=== PATIENT | male | born 1990 | race Caucasian/White ===

== ENCOUNTER 2016-07-27 12:51 | Emergency (ER) | payer OTHER ==
[2016-07-27 13:05] VITALS: BP 136/79
--- NOTE | 2016-07-27 13:05 | ER Document Report ---
ED Medical Screen (RME) - General Chief Complaint: Toothache Stated Complaint: TOOTHACHE Mode of Arrival: Ambulatory Information source: Patient Notes: pt presents to the ED with c/o dental pain that started yesterday. Also complains of chronic abdominal pain that hurts him when he eats certain foods. Reports pain for over 6 months. I have greeted and performed a rapid initial assessment of this patient. A comprehensive ED assessment and evaluation of the patient, analysis of test results and completion of the medical decision making process will be conducted by additional ED providers. TRAVEL OUTSIDE OF THE [place] IN LAST 30 DAYS: No - Related Data Allergies/Adverse Reactions: No Known Allergies Allergy (Unverified 07/27/16 13:02) Past Medical History Psychiatric Medical History: Reports: Hx Anxiety - Immunizations Immunizations up to date: Yes Hx Diphtheria, Pertussis, Tetanus Vaccination: Yes - 2012
--- NOTE | 2016-07-27 13:24 | ER Document Report ---
ED Oral Problem - General Chief Complaint: Toothache Stated Complaint: TOOTHACHE Mode of Arrival: Ambulatory Notes: Patient awakened this morning with pain in his lower left tooth that apparently fractured during the night. He says he is unable to get into see a dentist until the , but does have an appointment on today. Has not had any fever. Also says he's been having intermittent abdominal pains for the past 6 months. Has not seen a doctor about that condition. I advised him that that's a chronic pain condition and should be followed up by primary care provider in the community. TRAVEL OUTSIDE OF THE [place] IN LAST 30 DAYS: No - Related Data Allergies/Adverse Reactions: No Known Allergies Allergy (Unverified 07/27/16 13:02) Past Medical History - General Information source: Patient - Social History Smoking Status: Current Every Day Smoker Chew tobacco use (# tins/day): No Frequency of alcohol use: None Drug Abuse: None Family History: Reviewed & Not Pertinent, DM, Malignancy. denies: Arthritis, CAD, Hyperlipidemia, Hypertension, Thyroid Disfunction Patient has suicidal ideation: No Patient has homicidal ideation: No Psychiatric Medical History: Reports: Hx Anxiety Past Surgical History: Reports: Hx Herniorrhaphy - Immunizations Immunizations up to date: Yes Hx Diphtheria, Pertussis, Tetanus Vaccination: Yes - 2012 Review of Systems - Review of Systems Constitutional: denies: Chills, Fever, Malaise EENT: Dental problem. denies: Sinus discharge, Throat pain, Throat swelling Physical Exam - Vital signs Vitals: Temp Pulse Resp BP Pulse Ox 98 F 75 12 136/79 H 100 07/27/16 13:03 07/27/16 13:03 07/27/16 13:03 07/27/16 13:03 07/27/16 13:03 Interpretation: Normal - Notes Notes: PHYSICAL EXAMINATION: GENERAL: Well-appearing, in no acute distress. Voice normal. HEAD: Atraumatic, normocephalic. ENT: oropharynx clear without exudates. Moist mucous membranes. Patient has a fracture of tooth #22, the posterior half appears to be missing. NECK: Normal range of motion, supple. SKIN: Warm, dry, no rashes. Course - Vital Signs Vital signs: Temp Pulse Resp BP Pulse Ox 98 F 75 12 136/79 H 100 07/27/16 13:03 07/27/16 13:03 07/27/16 13:03 07/27/16 13:03 07/27/16 13:03 Discharge - Discharge Clinical Impression: Tooth ache, Chronic abdominal pain Fractured tooth Qualifiers: Encounter type: initial encounter Fracture type: closed Qualified Code(s): S02.5XXA - Fracture of tooth (traumatic), initial encounter for closed fracture Condition: Stable Disposition: HOME, SELF-CARE Additional Instructions: TOOTHACHE and fractured tooth: Your pain is due to dental decay. The tooth must be repaired in order for you to feel better. You will, therefore, be referred to a dentist. We do not have dentists on the staff at [facility]. Severe swelling or drainage around a tooth usually means a dental abscess. This also requires evaluation and treatment by the dentist, but antibiotics may be prescribed while awaiting dental treatment. You should be rechecked immediately if you develop major swelling of the face, increasing pain, a lump in the jaw or gums, headache, difficulty swallowing, or fever. ORAL NARCOTIC MEDICATION: You have been given a prescription for pain control. This medication is a narcotic. It's best taken with food, as nausea can result if taken on an empty stomach. Don't operate machinery or drive within six hours of taking this medication. Do not combine this medicine with alcohol, or with any medication which can cause sedation (such as cold tablets or sleeping pills) unless you get permission from the physician. Narcotics tend to cause constipation. If possible, drink plenty of fluids and eat a diet high in fiber and fruits. PENICILLIN V K: You have been given a prescription for Penicillin VK. Your physician has determined that this is the best antibiotic for your condition. Pen VK can be taken with meals, however more of the antibiotic gets into the bloodstream if it's taken on an empty stomach. Penicillin usually has no side effects. However, allergy to penicillins is common. If you have had an allergic reaction to any drug of the penicillin family, you should never take any other penicillin. Notify your doctor at once if you develop hives, itching, swelling, faintness, or shortness of breath. Your abdominal pain has been present for many months and is therefore chronic pain. We recommend you follow-up with a local healthcare provider to investigate the abdominal pain you've been experiencing for over 6 months. FOLLOW-UP CARE: You have been referred for follow-up care to the dentists listed below. Call the dentists office for an appointment as you were instructed or within the next two days. If you experience worsening or a significant change in your symptoms, notify the physician immediately or return to the Emergency Department at any time for re-evaluation. Keep your appointment to see a dentist on the , as you have scheduled. For future reference, some of the providers listed below are also available to help out with dental care. [facility] [address] [place], [place] mornings, by appointment [facility] [address] [place] [address] Count Includes The [facility] [address] [facility] [address] [facility] ([facility]) [facility] [address] [facility] [email or web address] [facility] [address] [place] [address] Wednesday- 8:00am to 5:00 pm Will see patients from other [facility]. Charges based on income and family size and accepts Medicare, Medicaid, and Insurances Will pull molars [facility] Student Clinics [facility] [id number] Hours of Operation 8:00 am - 4:30 pm weekdays The following dental offices accept Medicaid: [facility] Dr. Childers Dr. Angel Dr. Kumar Dr. Hurtado Rodrigo Lara, Aron, and Marco oral surgery Dr. Lam ([place]) Dr. Gurrola ([place]) [facility] Drs. Ugarte ([place]) Dr. Maloney ([place]) [facility] Dr. Sanabria ([place]) Drs. Brooke and ([place]) Medicaid Care Line Prescriptions: Oxycodone HCl/Acetaminophen [Percocet 5-325 mg Tablet] 1 - 2 tab PO Q4H PRN #20 tablet PRN Reason: Penicillin V Potassium [Penicillin Vk 500 mg Tablet] 500 mg PO TID #20 tablet Forms: Return to Work
== END 2016-07-27 13:32 | disposition home or self-care (01) ==
LOC: ER 12:51
DX: S02.5XXA Fracture of tooth (traumatic), initial encounter for closed fracture (principal); K08.9 Disorder of teeth and supporting structures, unspecified; F17.200 Nicotine dependence, unspecified, uncomplicated; X58.XXXA Exposure to other specified factors, initial encounter
CPT/HCPCS: 99282

== ENCOUNTER 2018-05-06 09:07 | Emergency (ER) | payer SELFPAY ==
[2018-05-06 09:22] VITALS: BP 121/71
[2018-05-06] MEDS ORDERED: ACETAMINOPHEN 325 MG TABLET PO ONE (09:54)
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
--- NOTE | 2018-05-06 10:34 | RADIOLOGY REPORT (SQ) ---
EXAM DESCRIPTION: FOOT RIGHT COMPLETE COMPLETED DATE/TIME: 05/06/2018 10:22 am REASON FOR STUDY: injury last week continued pain to right heel COMPARISON: None. NUMBER OF VIEWS: Three views. TECHNIQUE: AP, lateral and oblique radiographic images acquired of the right foot. LIMITATIONS: None. FINDINGS: MINERALIZATION: Normal. BONES: No acute fracture or dislocation. No worrisome bone lesions. JOINTS: No effusions. SOFT TISSUES: No soft tissue swelling. No foreign body. OTHER: No other significant finding. IMPRESSION: NEGATIVE STUDY OF THE RIGHT FOOT. NO RADIOGRAPHIC EVIDENCE OF ACUTE INJURY. TECHNICAL DOCUMENTATION: JOB ID: [id number] [employer]- All Rights Reserved Reading location - IP/workstation name: [email or web address]
== END 2018-05-06 10:49 | disposition home or self-care (01) ==
LOC: ER 09:07
DX: S90.31XA Contusion of right foot, initial encounter (principal); M79.671 Pain in right foot; Y04.0XXA Assault by unarmed brawl or fight, initial encounter; Z79.899 Other long term (current) drug therapy; F17.210 Nicotine dependence, cigarettes, uncomplicated
CPT/HCPCS: 99283; 99406

== ENCOUNTER 2018-05-15 10:03 | Emergency (ER) | payer SELFPAY ==
--- NOTE | 2018-05-15 10:21 | ER Document Report ---
ED Medical Screen (RME) - General Chief Complaint: Suicidal Ideation Stated Complaint: PSYCH PROBLEM Time Seen by Provider: 05/15/18 10:10 Notes: 28-year-old male to the emergency department for evaluation of suicidal ideation. Patient has substance abuse. Inject heroin. Is homeless. No social support. Living in a van at this time. States that on several occasions he is thought about intentionally overdosing because he is hopeless. Decided to come here for some help. I have greeted and performed a rapid initial assessment of this patient. A comprehensive ED assessment and evaluation of the patient, analysis of test results and completion of the medical decision making process will be conducted by additional ED providers. TRAVEL OUTSIDE OF THE [place] IN LAST 30 DAYS: No - Related Data Allergies/Adverse Reactions: No Known Allergies Allergy (Unverified 07/27/16 13:02) Past Medical History - Social History Frequency of alcohol use: Heavy Drug Abuse: Heroin, Marijuana, Prescription drugs Lives with: Homeless - Medical History Medical History: Negative Renal/ Medical History: Denies: Hx Peritoneal Dialysis Musculoskeltal Medical History: Reports Hx Musculoskeletal Trauma Psychiatric Medical History: Reports: Hx Anxiety, Hx Depression Past Surgical History: Reports: Hx Herniorrhaphy, Hx Myringotomy - Immunizations Immunizations up to date: Yes Hx Diphtheria, Pertussis, Tetanus Vaccination: Yes - 2012 Review of Systems - Review of Systems Notes: Review of systems positive for the following: Suicidal ideation, addiction, depression Physical Exam - Vital signs Vitals: Temp Pulse Resp BP Pulse Ox 97.8 F 129 H 18 106/71 97 05/15/18 10:05/15/18 10:05/15/18 10:05/15/18 10:09 05/15/18 10:09 Interpretation: Tachycardic. No: Febrile - HEENT Head: Normocephalic, Atraumatic Eyes: Normal Pupils: PERRL - Respiratory Respiratory status: No respiratory distress Chest status: Nontender Breath sounds: Normal Chest palpation: Normal - Cardiovascular Rhythm: Tachycardia Heart sounds: Normal auscultation Murmur: No - Psychological Associated symptoms: Normal affect, Depressed Course - Vital Signs Vital signs: Temp Pulse Resp BP Pulse Ox 97.8 F 129 H 18 106/71 97 05/15/18 10:09 05/15/18 10:09 05/15/18 10:05/15/18 10:05/15/18 10:09
--- NOTE | 2018-05-15 10:51 | ER Document Report ---
ED Psych Disorder / Suicide - General Chief Complaint: Suicidal Ideation Stated Complaint: PSYCH PROBLEM Time Seen by Provider: 05/15/18 10:10 Notes: 28-year-old male presents to the emergency department complaining of suicidal thoughts. When asked how he would do any state probably suicide by overdose but really has not settled on a specific plan. The patient started using drugs again. He was staying with family before and was kicked out [facility]. He was stealing her medications from the house. The patient went [facility] [place] [facility] and was staying there but due to his substance abuse issues alcohol and heroin he was kicked out. The patient stated he is homeless and has nowhere to go. He stated that he is having increased thoughts of suicide due to the stressors. States he has never tried before. He is looking for help. Denies any physical complaints. TRAVEL OUTSIDE OF THE [place] IN LAST 30 DAYS: No - Related Data Allergies/Adverse Reactions: No Known Allergies Allergy (Unverified 07/27/16 13:02) Past Medical History - Social History Smoking Status: Current Every Day Smoker Chew tobacco use (# tins/day): No Frequency of alcohol use: Heavy Drug Abuse: Heroin, Marijuana, Prescription drugs Lives with: Homeless Family History: Reviewed & Not Pertinent, DM, Malignancy Patient has suicidal ideation: Yes Patient has homicidal ideation: No - Medical History Medical History: Negative Renal/ Medical History: Denies: Hx Peritoneal Dialysis Musculoskeletal Medical History: Reports Hx Musculoskeletal Trauma Psychiatric Medical History: Reports: Hx Anxiety, Hx Depression Past Surgical History: Reports: Hx Herniorrhaphy, Hx Myringotomy - Immunizations Immunizations up to date: Yes Hx Diphtheria, Pertussis, Tetanus Vaccination: Yes - 2012 Review of Systems - Review of Systems Constitutional: No symptoms reported EENT: No symptoms reported Cardiovascular: No symptoms reported Respiratory: No symptoms reported Gastrointestinal: No symptoms reported Neurological/Psychological: Suicidal ideation. denies: Hallucinations, Headaches -: Yes All other systems reviewed and negative Physical Exam - Vital signs Vitals: Temp Pulse Resp BP Pulse Ox 97.8 F 129 H 18 106/71 97 05/15/18 10:09 05/15/18 10:09 05/15/18 10:09 05/15/18 10:05/15/18 10:09 - Notes Notes: GENERAL_APPEARANCE: well_nourished, alert, cooperative, no_acute_distress, no _obvious_discomfort. VITALS: reviewed, see vital signs table. HEAD: no_swelling\tenderness on the head. EYES: PERRL, EOMI, conjunctiva_clear. NOSE: no_nasal_discharge. MOUTH: (-)decreased moisture. THROAT: no_throat_inflammation, no_airway_obstruction. no_lymphadenopathy NECK: supple, no_neck_tenderness, (-)thyromegaly. BACK: no_back_tenderness. CHEST_WALL: no_chest_tenderness. LUNGS: no_wheezing, no_rales, no_rhonchi, (-)accessory muscle use, good air exchange bilateral. HEART: normal_rate, normal_rhythm, normal_S1, normal_S2, (-)S3, (-)S4, no_murmur, no_rub. ABDOMEN: normal_BS, soft, no_abd_tenderness, (-)guarding, (-)rebound, no_organomegaly, no_abd_masses. EXTREMITIES: good pulses in all_extremities, no_swelling\tenderness in the extremities, no_edema. SKIN: warm, dry, good_color, no_rash. Track josé on the arms from IV drug abuse none appear infected MENTAL_STATUS: speech_clear, oriented_X_3, anxious_affect, responds_appropriately to questions. PSYCH: Patient is openly suicidal. He states his plan will be to overdose but he has no medicines to overdose. States he really has not settled on a specific plan denies homicidal ideation denies visual or auditory hallucinations seems to have reasonable remote memory and judgment Course - Re-evaluation Re-evalutation: 05/15/18 10:50 28-year-old male arrives with suicidal ideation with very loose plan. He really has not settled on a plan when pushed on and he stated he would overdose but he has no meds to overdose on and he then referred that he may use the heroin. The patient is homeless. He has not tried suicide before he states he has been diagnosed and supposed to be on meds but is never followed through or taken any. We will medically evaluate him and if clear we will have psychiatry team see him. 05/15/18 11:24 Patient's laboratory work is back. The liver function tests had some very mild elevations but this is due to the amount of alcohol he is drinking. Otherwise he is medically clear for inpatient psychiatric care as he would require if required. Patient is medically clear. 05/15/18 11:24 We will await psychiatry consultation - Vital Signs Vital signs: Temp Pulse Resp BP Pulse Ox 97.8 F 72 16 106/71 99 05/15/18 10:09 05/15/18 10:51 05/15/18 10:51 05/15/18 10:09 05/15/18 10:51 - Laboratory Result Diagrams: 05/15/18 10:33 05/15/18 10:33 Laboratory results interpreted by me: 05/15/18 05/15/18 05/15/18 10:33 10:33 10:33 RBC 5.66 H Hgb 17.1 H Monocytes % 13.2 H Potassium 5.6 H Glucose 116 H AST 81 H ALT 139 H Urine Protein 100 H Urine Ketones TRACE H Urine Bilirubin SMALL H Urine Urobilinogen 4.0 H Salicylates < 1.0 L Acetaminophen < 10 L Discharge - Discharge Clinical Impression: Suicidal ideation Condition: Good
[2018-05-15 11:00] LABS: ABSOLUTE EOSINOPHILS # (AUTO) 0.2 10^3/uL (0.0-0.6); ABSOLUTE MONOCYTES (AUTO) 0.7 10^3/uL (0.1-1.4); ABSOLUTE NEUT (AUTO) 3.2 10^3/uL (1.7-8.2); BASOPHILS % (AUTO) 0.8 % (0-2); EOSINOPHILS % (AUTO) 3.8 % (0-6); HEMATOCRIT 49.8 % (37.9-51.0); HEMOGLOBIN 17.1 g/dL (13.5-17.0); LYMPHOCYTES % (AUTO) 19.4 % (13-45); MEAN CORPUSCULAR HEMOGLOBIN 30.2 pg (27.0-33.4); MEAN CORPUSCULAR HGB CONC 34.4 g/dL (32.0-36.0); MEAN CORPUSCULAR VOLUME 88 fl (80-97); MONOCYTES % (AUTO) 13.2 % (3-13); PLATELET COUNT 232 10^3/uL (150-450); RED BLOOD COUNT 5.66 10^6/uL (4.35-5.55); RED CELL DISTRIBUTION WIDTH 13.9 % (11.5-14.0); SEGMENTED NEUTROPHILS % (AUTO) 62.8 % (42-78); TOTAL CELLS COUNTED % (AUTO) 100 %; WHITE BLOOD COUNT 5.1 10^3/uL (4.0-10.5)
[2018-05-15 11:11] LABS: APPEARANCE,URINE SLIGHTLY-CLOUDY; BILIRUBIN,URINE SMALL (NEGATIVE); COLOR,URINE AMBER; GLUCOSE, URINE NEGATIVE (NEGATIVE); KETONES,URINE TRACE mg/dL (NEGATIVE); LEUKOCYTE ESTERASE,URINE NEGATIVE (NEGATIVE); NITRITE,URINE NEGATIVE (NEGATIVE); PROTEIN,URINE 100 mg/dL (NEGATIVE); URINE SPECIFIC GRAVITY 1.025
[2018-05-15 11:12] LABS: ALANINE AMINOTRANSFERASE 139 U/L (21-72); ALBUMIN 4.7 g/dL (3.5-5.0); ALKALINE PHOSPHATASE 115 U/L (38-126); ANION GAP 9 (5-19); ASPARTATE AMINO TRANSFERASE 81 U/L (17-59); BILIRUBIN,DIRECT 0.2 mg/dL (0.0-0.4); BILIRUBIN,TOTAL 0.5 mg/dL (0.2-1.3); BLOOD UREA NITROGEN 11 mg/dL (7-20); CALCIUM 10.2 mg/dL (8.4-10.2); CARBON DIOXIDE 30 mmol/L (22-30); CHLORIDE 100 mmol/L (98-107); GLUCOSE 116 mg/dL (75-110); POTASSIUM 5.6 mmol/L (3.6-5.0); TOTAL PROTEIN 7.3 g/dL (6.3-8.2)
[2018-05-15 11:17] LABS: ACETAMINOPHEN < 10 ug/mL (10-30); ALCOHOL < 10 mg/dL (NONE DETECTED); SALICYLATE < 1.0 mg/dL (2.0-20.0)
[2018-05-15 11:20] LABS: URINE AMPHETAMINES SCREEN NEGATIVE; URINE BARBITURATES SCREEN NEGATIVE; URINE BENZODIAZEPINES SCREEN NEGATIVE; URINE COCAINE SCREEN NEGATIVE; URINE MARIJUANA (THC) SCREEN UNCONFIRMED POSITIVE; URINE METHADONE SCREEN NEGATIVE; URINE PHENCYCLIDINE SCREEN NEGATIVE
[2018-05-15 13:35] VITALS: BP 115/74
--- NOTE | 2018-05-15 16:14 | PSYCHOLOGICAL NOTE ---
Psych Note - Psych Note Date seen by psych provider: 05/15/18 Time seen by psych provider: 12:00 Psych Note: Reason for consult: SI, S/A Patient is a 28 yo male presenting to the ED voluntarily with complaints of SI for last 2 weeks and admitted hx of heroin addiction. Of note, Patient was seen in the ED 2 weeks ago for a minor medical concern and denied/did not seek help for SI at that time. He relays that he has a hx of depression and anxiety while using drugs and that this resolved while he was in [facility] recovery for one year. This was a court mandated recovery as pat was convicted of financial fraud and theft. He left [facility] early in 09/2017 violating his parole and relapsed in 11/2017. He has a court date on 06/14/17. Since then, pt was living with a friend and was recently kicked out because he stole medication from the friend's mother. He is no longer allowed at the custodial because he was testing positive for NAVIN's. He is currently living in a friend's van. Patient denies prior suicide attempts, NSSI, has 4x prior S/A rehab, and toxicology is positive for opiates and THC. Patient is alert and oriented x4. Mood is agitated "because of withdrawal with anxious affect aeb patient was shaking and twitching due to withdrawal but was cooperative. Patient endorsed passive SI by OD relaying that SI is specific to drug use. Patient denied HI, and AV/H, does not appear to be responding to internal stimuli and no delusions were noted. Thought processes were linear, organized and rational. Eye contact was well maintained and conversational speech was WNL for rate, tone, and prosody. Intellectual abilities were estimated in the average range. Attention/concentration was WNL while, insight, judgment, and impulse control were fair. Diagnosis: 304.00 (F11.20) Opioid Use Disorder, Severe, by hx Recommendation is to discharge to [facility] for follow up with locating bed availability for detox. Patient verbalized agreement with this plan/gave his contact number for [facility] to reach him/and agreed to wait in the lobby for their arrival. Patient is a 28 yo male presenting to the ED voluntarily for concerns of SI and admitted hx of heroin addiction. He relapsed 11/2017 after one year court mandated rehab through [facility], is now homeless, and is seeking detox and recovery assistance. Patient endorses passive SI by OD aeb "I don't want to act on it/just afraid of getting worse on drugs", patient is hungry and asking for food, and is goal-oriented/future-focused on detox and recovery from heroin addiction. Medication recommendations as per psychiatric provider, Dr. Miranda are as follows: No medication recommendations at this time.
--- NOTE | 2018-05-15 23:42 | EKG REPORT ---
SEVERITY:- NORMAL ECG - SINUS RHYTHM ST ELEV, PROBABLE NORMAL EARLY REPOL PATTERN : Confirmed by: Ankit Meyers 15-May-2018 23:41:06
== END 2018-05-15 13:59 | disposition home or self-care (01) ==
LOC: ER 10:03
DX: R45.851 Suicidal ideations (principal); F11.20 Opioid dependence, uncomplicated; F17.200 Nicotine dependence, unspecified, uncomplicated; Z59.0 Homelessness
CPT/HCPCS: 36415; 80053; 80307; 81001; 85025; 93005; 93010; 99285

== ENCOUNTER 2019-02-10 18:42 | Emergency (ER) | payer SELFPAY ==
[2019-02-10 19:12] VITALS: BP 123/71
[2019-02-10] MEDS ORDERED: NORMAL SALINE 1000 ML 1,000 ML IV ONE (19:49)
[2019-02-10] MEDS ORDERED: DICYCLOMINE HCL 20 MG TABLET PO ONE (19:49)
--- NOTE | 2019-02-10 19:52 | ER Document Report ---
ED Medical Screen (RME) - General Chief Complaint: Abdominal Pain Stated Complaint: ABDOMINAL PAIN Time Seen by Provider: 02/10/19 19:45 Notes: Patient is a 29-year-old male presents emergency department with a chief complaint of abdominal pain. He states that he has had his abdominal pain on and off for the past few months. Patient states that it comes and goes. Patient states that he has had diarrhea. Mom has Crohn's disease. He was tested for Crohn's and it was negative. Patient states that he tried kratom to help with his pain and stopped about a week ago. He continues to have diarrhea. Denies any recent vomiting. Exam: Soft mildly tender abdomen. I have greeted and performed a rapid initial assessment of this patient. A comprehensive ED assessment and evaluation of the patient, analysis of test results and completion of medical decision making process will be conducted by an additional ED providers. TRAVEL OUTSIDE OF THE [place] IN LAST 30 DAYS: No - Related Data Allergies/Adverse Reactions: No Known Allergies Allergy (Unverified 02/10/19 19:39) Past Medical History Renal/ Medical History: Denies: Hx Peritoneal Dialysis Musculoskeltal Medical History: Reports Hx Musculoskeletal Trauma Psychiatric Medical History: Reports: Hx Anxiety, Hx Depression Past Surgical History: Reports: Hx Herniorrhaphy, Hx Myringotomy - Immunizations Immunizations up to date: Yes Hx Diphtheria, Pertussis, Tetanus Vaccination: Yes - 2012 Physical Exam - Vital signs Vitals: Temp Pulse Resp BP Pulse Ox 98.4 F 68 20 123/71 99 02/10/19 19:11 02/10/19 19:11 02/10/19 19:11 02/10/19 19:11 02/10/19 19:11 Course - Vital Signs Vital signs: Temp Pulse Resp BP Pulse Ox 98.4 F 68 20 123/71 99 02/10/19 19:11 02/10/19 19:11 02/10/19 19:11 02/10/19 19:11 02/10/19 19:11
[2019-02-10 20:22] LABS: ABSOLUTE BASOPHILS # (AUTO) 0.1 10^3/uL (0.0-0.2); ABSOLUTE EOSINOPHILS # (AUTO) 0.2 10^3/uL (0.0-0.6); ABSOLUTE LYMPHOCYTES (AUTO) 2.7 10^3/uL (0.5-4.7); ABSOLUTE MONOCYTES (AUTO) 0.7 10^3/uL (0.1-1.4); ABSOLUTE NEUT (AUTO) 4.3 10^3/uL (1.7-8.2); BASOPHILS % (AUTO) 0.6 % (0-2); EOSINOPHILS % (AUTO) 2.2 % (0-6); HEMATOCRIT 45.1 % (37.9-51.0); HEMOGLOBIN 15.4 g/dL (13.5-17.0); LYMPHOCYTES % (AUTO) 33.8 % (13-45); MEAN CORPUSCULAR HEMOGLOBIN 30.4 pg (27.0-33.4); MEAN CORPUSCULAR HGB CONC 34.2 g/dL (32.0-36.0); MEAN CORPUSCULAR VOLUME 89 fl (80-97); MONOCYTES % (AUTO) 8.8 % (3-13); PLATELET COUNT 249 10^3/uL (150-450); RED BLOOD COUNT 5.08 10^6/uL (4.35-5.55); SEGMENTED NEUTROPHILS % (AUTO) 54.6 % (42-78); TOTAL CELLS COUNTED % (AUTO) 100 %; WHITE BLOOD COUNT 7.9 10^3/uL (4.0-10.5)
[2019-02-10 20:47] LABS: ALBUMIN 4.6 g/dL (3.5-5.0); ALKALINE PHOSPHATASE 80 U/L (38-126); ANION GAP 10 (5-19); ASPARTATE AMINO TRANSFERASE 21 U/L (17-59); BILIRUBIN,DIRECT 0.1 mg/dL (0.0-0.4); BILIRUBIN,TOTAL 0.3 mg/dL (0.2-1.3); BLOOD UREA NITROGEN 14 mg/dL (7-20); CALCIUM 9.6 mg/dL (8.4-10.2); CARBON DIOXIDE 25 mmol/L (22-30); CHLORIDE 105 mmol/L (98-107); GLUCOSE 75 mg/dL (75-110); POTASSIUM 4.3 mmol/L (3.6-5.0); TOTAL PROTEIN 7.3 g/dL (6.3-8.2)
--- NOTE | 2019-02-10 23:28 | ER Document Report ---
ED General - General Chief Complaint: Abdominal Pain Stated Complaint: ABDOMINAL PAIN Time Seen by Provider: 02/10/19 19:45 TRAVEL OUTSIDE OF THE [place] IN LAST 30 DAYS: No - HPI Notes: This is a 29-year-old gentleman who presents today with a complaint of abdominal pain intermittently for the past several months. He describes epigastric pain but also has had some left lower quadrant discomfort. He has had some diarrhea and nausea also. Patient states that he was recently tested for Crohn's disease about a year ago. States biopsies and all other the studies were negative. He describes his symptoms as moderate. There are no obvious aggravating or relieving factors. Patient states he feels much better now. Pain was apparently was at work today. - Related Data Allergies/Adverse Reactions: No Known Allergies Allergy (Unverified 02/10/19 19:39) Past Medical History - Social History Smoking Status: Unknown if Ever Smoked Family History: Reviewed & Not Pertinent, DM, Malignancy Patient has suicidal ideation: No Patient has homicidal ideation: No Renal/ Medical History: Denies: Hx Peritoneal Dialysis Musculoskeletal Medical History: Reports Hx Musculoskeletal Trauma Psychiatric Medical History: Reports: Hx Anxiety, Hx Depression Past Surgical History: Reports: Hx Herniorrhaphy, Hx Myringotomy - Immunizations Immunizations up to date: Yes Hx Diphtheria, Pertussis, Tetanus Vaccination: Yes - 2012 Review of Systems - Review of Systems Cardiovascular: denies: Chest pain Gastrointestinal: Abdominal pain, Diarrhea, Nausea. denies: Vomiting, Constipation Musculoskeletal: denies: Back pain -: Yes All other systems reviewed and negative Physical Exam - Vital signs Vitals: Temp Pulse Resp BP Pulse Ox 98.4 F 68 20 123/71 99 02/10/19 19:11 02/10/19 19:11 02/10/19 19:11 02/10/19 19:11 02/10/19 19:11 - General General appearance: Appears well, Alert - Respiratory Respiratory status: No respiratory distress Chest status: Nontender Breath sounds: Normal Chest palpation: Normal - Cardiovascular Rhythm: Regular Heart sounds: Normal auscultation Murmur: No - Abdominal Inspection: Normal Distension: No distension Bowel sounds: Normal Tenderness: Tender - There is very mild epigastric tenderness. No guarding or rebound. Organomegaly: No organomegaly - Extremities General upper extremity: Normal inspection, Nontender, Normal color, Normal ROM, Normal temperature General lower extremity: Normal inspection, Nontender, Normal color, Normal ROM, Normal temperature, Normal weight bearing. No: Ghazala's sign - Neurological Neuro grossly intact: Yes Cognition: Normal Orientation: AAOx4 [place] Coma Scale Eye Opening: Spontaneous [place] Coma Scale Verbal: Oriented [place] Coma Scale Motor: Obeys Commands [place] Coma Scale Total: 15 Speech: Normal Motor strength normal: LUE, RUE, LLE, RLE Sensory: Normal - Psychological Associated symptoms: Normal affect, Normal mood Course - Re-evaluation Re-evalutation: 02/10/19 23:30 Differential diagnosis includes gastritis versus nonspecific abdominal pain versus IBS versus pancreatitis. 02/10/19 23:48 Patient reevaluated. Patient is doing well. He has no pain at this time. Labs reviewed and discussed. We will put him on Bentyl. He is stable for discharge. Discharge and follow-up discussed. - Vital Signs Vital signs: Temp Pulse Resp BP Pulse Ox 98.4 F 68 20 123/71 99 02/10/19 19:11 02/10/19 19:11 02/10/19 19:11 02/10/19 19:11 02/10/19 19:11 - Laboratory Result Diagrams: 02/10/19 20:04 02/10/19 20:04 Discharge - Discharge Clinical Impression: Abdominal pain Qualifiers: Abdominal location: unspecified location Qualified Code(s): R10.9 - Unspecified abdominal pain Condition: Good Disposition: HOME, SELF-CARE Instructions: Abdominal Pain ([facility]), Antispasmodics ([facility]) Additional Instructions: Follow-up with your doctor. Prescriptions: Dicyclomine HCl [Bentyl 20 mg Tablet] 20 mg PO QID PRN #20 tablet PRN Reason: Abdominal Cramping Ondansetron [Zofran Odt 4 mg Tablet] 1 tab PO Q4H PRN #15 tab.rapdis PRN Reason: For Nausea/Vomiting
== END 2019-02-10 23:54 | disposition home or self-care (01) ==
LOC: ER 18:42
DX: R10.32 Left lower quadrant pain (principal); R10.13 Epigastric pain; R19.7 Diarrhea, unspecified; R11.0 Nausea
CPT/HCPCS: 36415; 83690; 85025; 80053; J3490; J7030

== ENCOUNTER 2019-08-01 21:03 | Emergency (ER) | payer SELFPAY ==
--- NOTE | 2019-08-01 21:25 | ER Document Report ---
ED Medical Screen (RME) - General Chief Complaint: Psych Problem Stated Complaint: IVC Time Seen by Provider: 08/01/19 21:17 Mode of Arrival: Ambulatory Information source: Patient, Law [employer] Notes: 29-year-old male with history of drug abuse presents with [facility] department on IVC papers for report that patient tried to overdose on fentanyl twice today in an attempt to harm himself. Also tried to suffocate himself. Patient contacted mobile crisis when he was at home. Patient reports suicidal ideations due to financial difficulties. Patient very tearful. I have greeted and performed a rapid initial assessment of this patient. A comprehensive ED assessment and evaluation of the patient, analysis of test results and completion of the medical decision making process will be conducted by additional ED providers. TRAVEL OUTSIDE OF THE [place] IN LAST 30 DAYS: No - Related Data Allergies/Adverse Reactions: No Known Allergies Allergy (Unverified 02/10/19 19:39) Past Medical History Renal/ Medical History: Denies: Hx Peritoneal Dialysis Musculoskeltal Medical History: Reports Hx Musculoskeletal Trauma Psychiatric Medical History: Reports: Hx Anxiety, Hx Depression Past Surgical History: Reports: Hx Herniorrhaphy, Hx Myringotomy - Immunizations Immunizations up to date: Yes Hx Diphtheria, Pertussis, Tetanus Vaccination: Yes - 2012 Physical Exam - Vital signs Vitals: Temp Pulse Resp BP Pulse Ox 98.1 F 104 H 18 142/95 H 100 08/01/19 21:09 08/01/19 21:09 08/01/19 21:09 08/01/19 21:09 08/01/19 21:09 Course - Vital Signs Vital signs: Temp Pulse Resp BP Pulse Ox 98.1 F 104 H 18 142/95 H 100 08/01/19 21:09 08/01/19 21:09 08/01/19 21:09 08/01/19 21:09 08/01/19 21:09
[2019-08-01 21:53] LABS: ABSOLUTE EOSINOPHILS # (AUTO) 0.1 10^3/uL (0.0-0.6); ABSOLUTE MONOCYTES (AUTO) 0.9 10^3/uL (0.1-1.4); ABSOLUTE NEUT (AUTO) 5.1 10^3/uL (1.7-8.2); HEMOGLOBIN 14.6 g/dL (13.5-17.0); MEAN CORPUSCULAR HEMOGLOBIN 30.1 pg (27.0-33.4); TOTAL CELLS COUNTED % (AUTO) 100 %; WHITE BLOOD COUNT 8.2 10^3/uL (4.0-10.5)
[2019-08-01 21:56] LABS: APPEARANCE,URINE SLIGHTLY-CLOUDY; BASOPHILS % (AUTO) 0.4 % (0-2); BILIRUBIN,URINE NEGATIVE (NEGATIVE); COLOR,URINE AMBER; EOSINOPHILS % (AUTO) 1.7 % (0-6); GLUCOSE, URINE NEGATIVE (NEGATIVE); HEMATOCRIT 41.7 % (37.9-51.0); KETONES,URINE 20 mg/dL (NEGATIVE); LEUKOCYTE ESTERASE,URINE NEGATIVE (NEGATIVE); LYMPHOCYTES % (AUTO) 24.4 % (13-45); MEAN CORPUSCULAR VOLUME 86 fl (80-97); MONOCYTES % (AUTO) 10.9 % (3-13); NITRITE,URINE NEGATIVE (NEGATIVE); PLATELET COUNT 210 10^3/uL (150-450); PROTEIN,URINE 30 mg/dL (NEGATIVE); RED BLOOD COUNT 4.85 10^6/uL (4.35-5.55); SEGMENTED NEUTROPHILS % (AUTO) 62.6 % (42-78)
[2019-08-01 22:06] LABS: ALBUMIN 4.7 g/dL (3.5-5.0); ALKALINE PHOSPHATASE 94 U/L (38-126); ANION GAP 11 (5-19); ASPARTATE AMINO TRANSFERASE 23 U/L (17-59); BILIRUBIN,DIRECT 0.2 mg/dL (0.0-0.4); BILIRUBIN,TOTAL 0.5 mg/dL (0.2-1.3); BLOOD UREA NITROGEN 14 mg/dL (7-20); CALCIUM 9.5 mg/dL (8.4-10.2); CARBON DIOXIDE 30 mmol/L (22-30); CHLORIDE 97 mmol/L (98-107); GLUCOSE 104 mg/dL (75-110); POTASSIUM 4.2 mmol/L (3.6-5.0)
[2019-08-01 22:10] LABS: ACETAMINOPHEN < 10 ug/mL (10-30); ALCOHOL < 10 mg/dL (NONE DETECTED); SALICYLATE < 1.0 mg/dL (2.0-20.0)
[2019-08-01 22:15] LABS: URINE BARBITURATES SCREEN NEGATIVE; URINE BENZODIAZEPINES SCREEN NEGATIVE; URINE COCAINE SCREEN NEGATIVE; URINE MARIJUANA (THC) SCREEN NEGATIVE; URINE METHADONE SCREEN NEGATIVE; URINE PHENCYCLIDINE SCREEN NEGATIVE
--- NOTE | 2019-08-01 23:04 | ER Document Report ---
ED General - General Chief Complaint: Depression Stated Complaint: IVC Time Seen by Provider: 08/01/19 21:17 Mode of Arrival: Ambulatory TRAVEL OUTSIDE OF THE [place] IN LAST 30 DAYS: No - HPI Notes: Patient is a 29-year-old male with a history of drug abuse including heroin, meth, fentanyl presents by mobile crisis on IVC papers for suicidal ideation and attempt this morning. Patient states that he last injected meth last night, heroin this morning with fentanyl. Patient states that his mental state was not to overdose at that time, but "if it happened" he was okay with it. Patient states that he was somewhat angry after injecting fentanyl and decided to try to strangle himself with his belt. Patient states that after he took the fentanyl everything became a blur, but something prompted him to make a phone call to his fiance and to mobile crisis. Patient states that he concerned that he was and could have succeeded in taking his own life. Patient states that he has been having financial issues which has been stressing him out. On a side note, patient does have a little pain to his lateral elbow area without precipitating event or injury. Patient does not injected this area. He has not noticed any redness or bruising. This is been ongoing for "a while" and has been relatively constant is worse with movement. Denies any headache, fever, head injury, neck pain, changes in vision/speech/hearing, URI, sore throat, chest pain, palpitations, syncope, cough, shortness of breath, wheeze, dyspnea, abdominal pain, nausea/vomiting/diarrhea, urinary retention, dysuria, hematuria, loss of control of bowel or bladder, numbness/tingling, saddle anesthesia, muscle paralysis/weakness, or rash. - Related Data Allergies/Adverse Reactions: No Known Allergies Allergy (Unverified 02/10/19 19:39) Past Medical History - General Information source: Patient, Law Enforcement - Social History Smoking Status: Never Smoker Drug Abuse: Prescription drugs Family History: Reviewed & Not Pertinent, DM, Malignancy Patient has suicidal ideation: Yes Patient has homicidal ideation: No Renal/ Medical History: Denies: Hx Peritoneal Dialysis Musculoskeletal Medical History: Reports Hx Musculoskeletal Trauma Psychiatric Medical History: Reports: Hx Anxiety, Hx Depression Past Surgical History: Reports: Hx Herniorrhaphy, Hx Myringotomy - Immunizations Immunizations up to date: Yes Hx Diphtheria, Pertussis, Tetanus Vaccination: Yes - 2012 Review of Systems - Review of Systems -: Yes All other systems reviewed and negative Physical Exam - Vital signs Vitals: Temp Pulse Resp BP Pulse Ox 98.1 F 104 H 18 142/95 H 100 08/01/19 21:09 08/01/19 21:09 08/01/19 21:09 08/01/19 21:09 08/01/19 21:09 - Notes Notes: PHYSICAL EXAMINATION: GENERAL: Well-appearing, well-nourished and in no acute distress. A&Ox4. Answers questions appropriately. HEAD: Atraumatic, normocephalic. EYES: Pupils equal round and reactive to light, extraocular movements intact, s clera anicteric, conjunctiva are normal. ENT: Nares patent and without discharge. oropharynx clear without exudates. No tonsilar hypertrophy or erythema. Moist mucous membranes. NECK: Normal range of motion, supple without lymphadenopathy LUNGS: Breath sounds clear to auscultation bilaterally and equal. No wheezes rales or rhonchi. HEART: Regular rate and rhythm without murmurs, rubs, gallops. ABDOMEN: Soft, nontender, nondistended abdomen. No guarding, no rebound. Normal bowel sounds present. No CVA tenderness bilaterally. Musculoskeletal: FROM to passive/active. Strength 5+/5. there is tenderness to the epicondyle tendons that is reproduced with resisted extension. No erythema, ecchymosis, induration, or abscess. Extremities: No cyanosis, clubbing, or edema b/l. Peripheral pulses 2+. Capillary refill less than 3 seconds. NEUROLOGICAL: Cranial nerves grossly intact. Normal speech, normal gait. Normal sensory, motor exams PSYCH: emotional, tearful, remorseful SKIN: Warm, Dry, normal turgor, no rashes or lesions noted. Course - Re-evaluation Re-evalutation: 08/01/19 23:05 Patient is an afebrile, well-hydrated, 29-year-old male who presents for she was ideation with attempt this morning. Patient is on IVC papers. Vitals are except without significant tachycardia, tachypnea, or hypoxia. PE is otherwise unremarkable. Patient is nontoxic-appearing and is tolerating p.o. without difficulty. Patient does show remorse and a desire not to end his life at this time. I will place a clonidine patch today and give him some Motrin. I do suspect that his elbow pain is associated with lateral epicondylitis. He does not inject into this area and there has not been any trauma or other indication for an x-ray at this time. Patient is otherwise medically cleared for evaluation by our mental health team in the morning. - Vital Signs Vital signs: Temp Pulse Resp BP Pulse Ox 98.1 F 104 H 18 142/95 H 100 08/01/19 21:09 08/01/19 21:09 08/01/19 21:09 08/01/19 21:09 08/01/19 21:09 - Laboratory Result Diagrams: 08/01/19 21:32 08/01/19 21:32 Laboratory results interpreted by me: 08/01/19 08/01/19 21:32 21:32 Chloride 97 L Urine Protein 30 H Urine Ketones 20 H Urine Urobilinogen 2.0 H Salicylates < 1.0 L Acetaminophen < 10 L Discharge - Discharge Clinical Impression: Suicidal ideation, Suicide attempt Condition: Stable Disposition: PSYCH HOSP/UNIT
[2019-08-01] MEDS ORDERED: IBUPROFEN 800 MG TABLET PO ONE (23:08)
[2019-08-01] MEDS ORDERED: CLONIDINE 0.1 MG/24 HR PATCH.TDWK TD ONE (23:08)
--- NOTE | 2019-08-02 11:14 | EKG REPORT ---
SEVERITY:- BORDERLINE ECG - SINUS RHYTHM PROBABLE LEFT ATRIAL ABNORMALITY BORDERLINE PROLONGED QT INTERVAL : Confirmed by: Treva Landeros MD 02-Aug-2019 11:13:29
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
[2019-08-02] MEDS ORDERED: ACETAMINOPHEN 325 MG TABLET PO ONE (12:54)
--- NOTE | 2019-08-02 12:55 | ER Document Report ---
Doctor's Note Notes: 08/02/19 12:54 PHYSICAL EXAMINATION: GENERAL: Appears well, healthy, well-nourished, no acute distress. LUNGS: Equal breath sounds bilaterally and clear to auscultation. No wheezes rales or rhonchi. CARDIOVASCULAR: S1-S2, regular rate, regular rhythm. Radial pulses 2+, normal. ABDOMEN: Normoactive bowel sounds. Soft, nontender, no guarding, no rebound tenderness, and no masses palpated. PSYCH: Normal mood, normal affect. Denies any suicidal or homicidal ideation. Patient states that his stomach hurts a little bit and states, "I think it is from the withdrawls." Will give him Tylenol. Law enforcement is at bedside to transport the patient to [facility] health facility. Patient is stable for transport.
[2019-08-02 13:13] VITALS: BP 117/79
== END 2019-08-02 13:16 ==
LOC: ER 21:03
DX: R45.851 Suicidal ideations (principal); T40.4X2A Poisoning by other synthetic narcotics, intentional self-harm, initial encounter; T40.1X2A Poisoning by heroin, intentional self-harm, initial encounter; T43.622A Poisoning by amphetamines, intentional self-harm, initial encounter; X58.XXXA Exposure to other specified factors, initial encounter
CPT/HCPCS: 93005; 99285; 36415; 80307 ×4; 85025; 80053; 81001; 93010; J3490

== ENCOUNTER 2019-12-10 11:13 | Emergency (ER) | payer SELFPAY ==
[2019-12-10 11:50] LABS: ABSOLUTE LYMPHOCYTES (AUTO) 1.3 10^3/uL (0.5-4.7); ABSOLUTE NEUT (AUTO) 9.3 10^3/uL (1.7-8.2); BASOPHILS % (AUTO) 0.3 % (0-2); EOSINOPHILS % (AUTO) 0.3 % (0-6); HEMATOCRIT 42.3 % (37.9-51.0); HEMOGLOBIN 14.4 g/dL (13.5-17.0); LYMPHOCYTES % (AUTO) 11.2 % (13-45); MEAN CORPUSCULAR HEMOGLOBIN 28.9 pg (27.0-33.4); MEAN CORPUSCULAR VOLUME 85 fl (80-97); MONOCYTES % (AUTO) 8.4 % (3-13); PLATELET COUNT 239 10^3/uL (150-450); RED BLOOD COUNT 4.97 10^6/uL (4.35-5.55); RED CELL DISTRIBUTION WIDTH 14.1 % (11.5-14.0); SEGMENTED NEUTROPHILS % (AUTO) 79.8 % (42-78); TOTAL CELLS COUNTED % (AUTO) 100 %; WHITE BLOOD COUNT 11.7 10^3/uL (4.0-10.5)
--- NOTE | 2019-12-10 12:03 | ER Document Report ---
ED General - General Chief Complaint: Possible Overdose Stated Complaint: VISION PROBLEMS Notes: Patient is a 29-year-old white male with a history of heroin abuse who presents to the emergency department the chief complaint of potential overdose. Patient states that he just got out of longterm after 5 days. Was withdrawing from his usual heroin usage. States he typically uses 1 g of heroin per day. He reports he could not resist the urge with withdrawal, called someone who brought him what he believes to be was heroin. He states he went into the bathroom and in jected. He is unsure who found him but states he woke up with EMS. EMS reports he was unresponsive on arrival but was not pulseless. They gave him 1 round of Narcan and the patient became quickly alert and oriented. He has remained that way since his arrival here to the emergency department. The patient is very tearful stating that he is tried several times to stop from using heroin but has great difficulties. He has tried Subutex in the past but states that he can still get high using that and is requesting help with getting connected with Suboxone treatment center. Patient denies any complaints at this time. No headache, visual disturbances, chest pain, shortness of breath, abdominal pain, nausea vomiting diarrhea or any muscle aches or pains. TRAVEL OUTSIDE OF THE [place] IN LAST 30 DAYS: No - Related Data Allergies/Adverse Reactions: No Known Allergies Allergy (Verified 12/10/19 11:27) Past Medical History - Social History Smoking Status: Former Smoker Frequency of alcohol use: Occasional Drug Abuse: Heroin, Methamphetamine Family History: Reviewed & Not Pertinent, DM, Malignancy Patient has homicidal ideation: No Renal/ Medical History: Denies: Hx Peritoneal Dialysis Musculoskeletal Medical History: Reports Hx Musculoskeletal Trauma Psychiatric Medical History: Reports: Hx Anxiety, Hx Depression Past Surgical History: Reports: Hx Herniorrhaphy, Hx Myringotomy - Immunizations Immunizations up to date: Yes Hx Diphtheria, Pertussis, Tetanus Vaccination: Yes - 2012 Review of Systems - Review of Systems Constitutional: denies: Fever EENT: denies: Throat pain Cardiovascular: denies: Chest pain Respiratory: denies: Short of breath Gastrointestinal: denies: Abdominal pain Genitourinary: denies: Pain Male Genitourinary: denies: Erectile dysfunction Musculoskeletal: denies: Back pain Skin: denies: Change in color Hematologic/Lymphatic: denies: Easy bruising Neurological/Psychological: Lost consciousness Physical Exam - Vital signs Vitals: Temp Pulse Resp BP Pulse Ox 97.6 F 117 H 20 118/81 100 12/10/19 11:22 12/10/19 11:22 12/10/19 11:22 12/10/19 11:22 12/10/19 11:22 - General General appearance: Appears well, Alert In distress: None - HEENT Head: Normocephalic, Atraumatic Eyes: Normal Conjunctiva: Normal Eyelashes: Normal Pupils: PERRL Ears: Normal Nasal: Normal Mouth/Lips: Normal Mucous membranes: Moist Pharynx: Normal Neck: Normal, Supple - Respiratory Respiratory status: No respiratory distress Chest status: Nontender Breath sounds: Normal Chest palpation: Normal - Cardiovascular Rhythm: Regular Heart sounds: Normal auscultation - Abdominal Inspection: Normal Distension: No distension Bowel sounds: Normal Tenderness: Nontender Organomegaly: No organomegaly - Neurological Neuro grossly intact: Yes Cognition: Normal Orientation: AAOx4 - Psychological Associated symptoms: Normal affect, Normal mood - Skin Skin Color: Other - Recent injection site noted left AC fossa Course - Re-evaluation Re-evalutation: 12/10/19 12:02 Patient has recently been connected with the [facility] where it appears a off her methadone and Subutex treatments. Patient states he cannot take Subutex because he will continue to get high. States he was on Suboxone in the past and it worked very well for him but he fell out of the program. He is very regretful. States he did not take this medicine on purpose doing with any intent to harm himself. He denies suicidal or homicidal ideations. No delusions or hallucinations. Patient will be medically cleared and he will be given resources for Suboxone treatments. 12/10/19 13:11 EK:52 AM. Sinus tachycardia at 118 bpm. Normal intervals otherwise. No STEMI. No significant change from prior EKG dated 08/01/2019. Interpreted by ED attending. 12/10/19 13:30 Patient is medically cleared. Negative for any acute process on work-up. Urine drug screen positive for benzos from previous Librium administration in longterm as well as methamphetamines. Patient is stable for discharge. We discussed treatment program options. He states he would like to be discharged so he can go to [place] for detox and then connected with potential Suboxone programs that were relayed to him. He is agreeable to this plan. He is stable for discharge to [place]. Counseled him regarding importance of reporting over there and advised to return here or any ER immediately with any new, persistent or worsening symptoms. He verbalized understood and agreed. - Vital Signs Vital signs: Temp Pulse Resp BP Pulse Ox 97.8 F 92 18 120/80 100 12/10/19 13:00 12/10/19 13:00 12/10/19 13:00 12/10/19 13:00 12/10/19 13:00 - Laboratory Result Diagrams: 12/10/19 11:20 12/10/19 11:20 Laboratory results interpreted by me: 12/10/19 12/10/19 12/10/19 11:20 11:20 12:01 WBC 11.7 H RDW 14.1 H Lymph % (Auto) 11.2 L Absolute Neuts (auto) 9.3 H Seg Neutrophils % 79.8 H Glucose 179 H Urine Protein >=500 H Urine Glucose (UA) 50 H Urine Ascorbic Acid 40 H Salicylates < 1.0 L Acetaminophen < 10 L Discharge - Discharge Clinical Impression: Polysubstance abuse Condition: Stable Disposition: HOME, SELF-CARE Instructions: Narcotic Abuse ([facility]) Additional Instructions: Please report to [facility] as discussed for continued detox and continue seeking treatment with the Suboxone program as discussed as soon as possible. Please return here or any ER immediately with any new, persistent or worsening symptoms.
[2019-12-10 12:06] LABS: ALBUMIN 4.2 g/dL (3.5-5.0); ALKALINE PHOSPHATASE 79 U/L (38-126); ANION GAP 9 (5-19); ASPARTATE AMINO TRANSFERASE 23 U/L (17-59); BILIRUBIN,TOTAL 0.3 mg/dL (0.2-1.3); BLOOD UREA NITROGEN 13 mg/dL (7-20); CALCIUM 8.8 mg/dL (8.4-10.2); CARBON DIOXIDE 27 mmol/L (22-30); CHLORIDE 106 mmol/L (98-107); GLUCOSE 179 mg/dL (75-110)
[2019-12-10 12:07] LABS: ACETAMINOPHEN < 10 ug/mL (10-30); ALCOHOL < 10 mg/dL (NONE DETECTED); SALICYLATE < 1.0 mg/dL (2.0-20.0)
[2019-12-10 12:37] LABS: AMORPHOUS SEDIMENT,URINE TRACE /HPF; APPEARANCE,URINE SLIGHTLY-CLOUDY; BILIRUBIN,URINE NEGATIVE (NEGATIVE); COLOR,URINE YELLOW; GLUCOSE, URINE 50 mg/dL (NEGATIVE); KETONES,URINE NEGATIVE (NEGATIVE); LEUKOCYTE ESTERASE,URINE NEGATIVE (NEGATIVE); NITRITE,URINE NEGATIVE (NEGATIVE); PROTEIN,URINE >=500 mg/dL (NEGATIVE); URINE SPECIFIC GRAVITY 1.017; UROBILINOGEN,URINE NEGATIVE mg/dL (<2.0)
[2019-12-10 12:46] LABS: URINE BARBITURATES SCREEN NEGATIVE; URINE COCAINE SCREEN NEGATIVE; URINE MARIJUANA (THC) SCREEN NEGATIVE; URINE METHADONE SCREEN NEGATIVE; URINE PHENCYCLIDINE SCREEN NEGATIVE
[2019-12-10 12:47] LABS: URINE BENZODIAZEPINES SCREEN UNCONFIRMED POSITIVE
[2019-12-10 13:27] VITALS: BP 120/80
--- NOTE | 2019-12-10 19:17 | EKG REPORT ---
SEVERITY:- ABNORMAL ECG - SINUS TACHYCARDIA PROLONGED QT INTERVAL : Confirmed by: Ankit Meyers 10-Dec-2019 19:17:00
== END 2019-12-10 13:42 | disposition home or self-care (01) ==
LOC: ER 11:13
DX: T40.1X1A Poisoning by heroin, accidental (unintentional), initial encounter (principal); F19.10 Other psychoactive substance abuse, uncomplicated; Z87.891 Personal history of nicotine dependence
CPT/HCPCS: 36415; 80053; 80307; 81001; 85025; 93005; 93010; 99284

== ENCOUNTER → 2020-02-19 | Outpatient (CLI) | payer SELFPAY ==
--- NOTE | 2020-02-19 13:17 | ER RDC ASSESSMENT REPORT ---
Intake - In the Last 14 days Have you traveled outside [place]?: No Have you been in close contact with someone CONFIRMED: Yes Worked in Healthcare?: No - Symptoms Subjective Fever([place] feverish): No Chills: Yes Muscule Aches: Yes Runny Nose: Yes Sore Throat: Yes Cough (New or worsening chronic cough): Yes Shortness of breath: Yes Nausea or Vomiting: Yes Headache: No Abdominal Pain: No Diarrhea(3 or more loose stools in last 24 hours): Yes - Do you have any of the following Chronic lung disease: Asthma or emphysema or COPD: No Cystic Fibrosis: No Diabetes: No High Blood Pressure: No Cardiovascular Disease: No Chronic Kidney Disease: No Chronic Liver Disease: No Chronic blood disorder like Sickle Cell Disease: No Weak immune system due to disease or medication: No Neurologic condition that limits movement: No Developmental delay - Moderate to Severe: No Recent (within past 2 weeks) or current : No Morbid Obesity (>100 pounds over ideal weight): No Obesity Comment: Height 6 feet 3 inches weight 175 pounds - Objective Temperature: 98.2 F Pulse Rate: 96 Respiratory Rate: 18 Blood Pressure: 128/68 O2 Sat by Pulse Oximetry: 96 Objective: Given above, testing performed: If Testing Performed: Test Specimen Type Sent to General - General Information source: Patient Notes: Here at [facility] for cover testing. Patient reports girlfriend had exposure to someone at work that was positive. Patient reports girlfriend has symptoms but has not gotten checked patient reports started to develop symptoms over a week ago including chills muscle aches runny nose sore throat cough nausea loss of taste and smell and diarrhea. Patient does not have a local primary care provider. - Related Data Allergies/Adverse Reactions: No Known Allergies Allergy (Verified 12/10/19 11:27) Past Medical History - General Information source: Patient - Social History Smoking Status: Current Every Day Smoker - smokes a pack a day Smoking Education Provided: Yes - STOP Smoking Family History: Reviewed & Not Pertinent, DM, Malignancy Renal/ Medical History: Denies: Hx Peritoneal Dialysis Musculoskeletal Medical History: Reports Hx Musculoskeletal Trauma Psychiatric Medical History: Reports: Hx Anxiety, Hx Depression Past Surgical History: Reports: Hx Herniorrhaphy, Hx Myringotomy Physical Exam - General General appearance: Appears well, Alert In distress: None Notes: PHYSICAL EXAMINATION: GENERAL: Well-appearing and in no acute distress. HEAD: Atraumatic, normocephalic. EYES: sclera anicteric, conjunctiva are normal. ENT: nares patent. Moist mucous membranes. NECK: Normal range of motion, supple without lymphadenopathy LUNGS: CTAB and equal. No wheezes rales or rhonchi. Durations even and unlabored lung sounds clear. HEART: Regular rate and rhythm without murmurs ABDOMEN: Soft, nontender, normal bowel sounds, no guarding. EXTREMITIES: Normal range of motion, no pitting edema. No cyanosis. NEUROLOGICAL: Cranial nerves grossly intact. Normal speech. Normal gait. PSYCH: Normal mood, normal affect. SKIN: Warm, Dry, normal turgor, no rashes or lesions noted Diagnostic Results Laboratory Results: Patient informed of positive strep culture. Prescription for Pen-Vee K 500 mg 1 p.o. twice daily for 10 days total of 20 tablets called into patient's pharmacy of [facility] in [place] pending strep culture pending covid testing results. Patient provided instructions regarding coverage to include: As a person under investigation for Covid 19, the [place] department of Health and Human Services, division of public health advises you to adhere to the following guidance until your test results are reported to you. If your test result is positive, you will receive additional information from your provider and your local health department at that time. Remain at home until you are cleared by the health provider or public health authorities. Keep a log of visitors to your home, notify any visitors to your home of your isolation status. If you plan to move to a new address or leave the [facility], notify the local health department in your [facility]. Call your doctor or seek care if you have an urgent medical need. Before seeking medical care, call ahead to get instructions from the provider before arriving at the medical office clinic or hospital. Notify them that you are being tested for the virus that causes Covid 19 so that arrangements can be made, as necessary, to prevent transmission to others in the healthcare setting. Next, notify the local health department in your county. If a medical emergency arises and you need to call 911, inform the first responders that you are being tested for the virus that causes Covid 19. Next, notify the local health department in your county. Patient Education/Counseling Counseling/Education: Patient presents with upper respiratory symptoms worrisome for possible Covid 19. Patient does not have emergency worring symptoms such as difficulty breathing, shortness of breath, chest pain, pressure, confusion or cyanosis. Patient appears suitable for discharge. Patient instructed to follow-up with urgent care or to ED for persistent or worsening symptoms. Patient's vital signs are stable and patient is nontoxic in appearance. Good return precautions have been discussed with patient, patient verbalized understanding and is agreeable with discharge plan of care at this time. RDC Discharge - Discharge Clinical Impression: Strep pharyngitis Condition: Stable Disposition: Home; Selfcare
[2020-02-19 13:18] VITALS: BP 128/68
[2020-02-19 14:15] LABS: A TYPE INFLUENZA AG NEGATIVE (NEGATIVE); B INFLUENZA AG NEGATIVE (NEGATIVE)
== END ==
LOC: RDC 12:43
DX: Z20.828 Contact with and (suspected) exposure to other viral communicable diseases (principal); R68.83 Chills (without fever); R05 Cough; R06.02 Shortness of breath; J02.9 Acute pharyngitis, unspecified; R09.89 Other specified symptoms and signs involving the circulatory and respiratory systems; M79.10 Myalgia, unspecified site; R19.7 Diarrhea, unspecified; R11.0 Nausea; R43.8 Other disturbances of smell and taste; F17.200 Nicotine dependence, unspecified, uncomplicated; F32.9 Major depressive disorder, single episode, unspecified
CPT/HCPCS: 87880; 87635; 87804; C9803

== ENCOUNTER 2020-04-12 16:54 | Emergency (ER) | payer SELFPAY ==
[2020-04-12] MEDS ORDERED: LORAZEPAM INJ 2 MG/1 ML VIAL IV ONE ×2 (17:31→23:27)
[2020-04-12] MEDS ORDERED: KETOROLAC TROMETHAMINE INJ/PF 30 MG/1 ML SDV IV ONE ×2 (17:31→20:22)
--- NOTE | 2020-04-12 17:36 | ER Document Report ---
ED General - General Stated Complaint: CHEST PAIN Time Seen by Provider: 04/12/20 17:01 Mode of Arrival: Medic Notes: This 30-year-old male presents to the emergency department with a history of injected heroin in the left antecubital area approximately 4 days ago. Yesterday he began developing pain in the left arm radiating into the left sh oulder and left anterior chest and left upper back region. He denies fever, shortness of breath or palpitations. He does note that the pain increases when he coughs or takes a deep breath. He denies history of heart problems or endocarditis in the past. He has been a chronic heroin abuser for many years . EMS was called to the scene and the patient received aspirin, sublingual nitroglycerin, and a nitroglycerin drip was started to attempt to try to relieve his pain. In the emergency department an EKG was performed which is negative for hyperacute changes. TRAVEL OUTSIDE OF THE [place] IN LAST 30 DAYS: No - Related Data Allergies/Adverse Reactions: No Known Allergies Allergy (Verified 12/10/19 11:27) Past Medical History - Social History Smoking Status: Unknown if Ever Smoked Family History: Reviewed & Not Pertinent, DM, Malignancy Renal/ Medical History: Denies: Hx Peritoneal Dialysis Musculoskeletal Medical History: Reports Hx Musculoskeletal Trauma Psychiatric Medical History: Reports: Hx Anxiety, Hx Depression Past Surgical History: Reports: Hx Herniorrhaphy, Hx Myringotomy - Immunizations Immunizations up to date: Yes Hx Diphtheria, Pertussis, Tetanus Vaccination: Yes - 2012 Review of Systems - Review of Systems Notes: Constitutional: Negative for fever. HENT: Negative for sore throat. Eyes: Negative for visual changes. Cardiovascular: + Chest pain Respiratory: See HPI Gastrointestinal: Negative for abdominal pain, vomiting or diarrhea. Genitourinary: Negative for dysuria. Musculoskeletal: + Left arm pain and + left shoulder pain Skin: Negative for rash. Neurological: Negative for headaches, weakness or numbness. 10 point ROS negative except as marked above and in HPI. Physical Exam - Vital signs Vitals: Temp 98.0 F 04/12/20 16:54 - Notes Notes: PHYSICAL EXAMINATION: Physical Exam: General: Well-nourished well-developed 30-year-old male in no acute distress HEENT: NC/AT, pupils equal round and reactive to light, MM moist,nares clear, or opharynx clear, airway patent Neck: supple, no adenopathy, no masses. Good range of motion Lungs: clear, no wheezing, no rales no rhonchi CVS: Regular rate and rhythm no murmur gallop or rub Abdomen: Soft, active, nontender, no masses, no hepatosplenomegaly Ext: Tenderness and the left antecubital region, left biceps region and a field deltoid. Also noted to have tenderness in the anterior left chest wall and left upper trapezius muscle group. Neuro: Alert and responsive, moving all 4 extremities on command, cranial nerves intact, no focal findings Skin: Intact no open lesions, no rash PSYCH: Normal mood, normal affect. Course - Re-evaluation Re-evalutation: 04/12/20 23:28 Patient with pain along the left arm and into the left anterior chest wall and also posterior upper back region. Marked tenderness to light touch. Chest x- ray is clear CTA is also negative EKG and cardiac enzymes are also negative. This appears to be musculoskeletal in etiology, given his injection of heroin 4 days prior to the onset of vasculitis versus early infection cannot be excluded. Patient is being discharged with anti-inflammatory medication and muscle relaxant. I am also covering him with clindamycin short-term. - Vital Signs Vital signs: Temp Pulse Resp BP Pulse Ox 98.0 F 15 114/69 100 04/12/20 16:54 04/12/20 23:34 04/12/20 23:34 04/12/20 23:34 - Laboratory Result Diagrams: 04/12/20 17:28 04/12/20 17:28 Laboratory results interpreted by me: 04/12/20 04/12/20 04/12/20 17:28 17:28 17:28 Hgb 12.5 L Hct 37.0 L RDW 15.2 H [place] % (Auto) 17.2 H APTT 39.0 H Chloride 108 H BUN 6 L Calcium 8.3 L AST 12 L Creatine Kinase 40 L Albumin 3.4 L Urine Protein Urine Urobilinogen 04/12/20 19:33 Hgb Hct RDW [place] % (Auto) APTT Chloride BUN Calcium AST Creatine Kinase Albumin Urine Protein 30 H Urine Urobilinogen 2.0 H Discharge - Discharge Clinical Impression: Non-cardiac chest pain, Left arm pain, IV drug abuse Condition: Good Disposition: HOME, SELF-CARE Instructions: Chest Wall Pain ([facility]), Chest Pain of Unclear Cause ([facility]) Additional Instructions: You are seen in the emergency department tonight with pain in the left arm to light touch as well as the anterior chest wall and posterior chest wall. The symptoms appear to be musculoskeletal in etiology. However, given the history of IV drug abuse, you are given an antibiotic for possible early infection. Please take medications as prescribed and follow-up as an outpatient. Please discontinue IV drug use. HOME CARE INSTRUCTIONS & INFORMATION: Thank you for choosing us for your medical needs. We hope you're satisfied with the care you received. After you leave, you must properly care for your problem and, at the same time, observe its progress. Any condition can change. Some illnesses can change rapidly over hours or days. If your condition worsens, return to the Emergency Department or see your physician promptly. ABOUT YOUR X-RAYS AND EKG'S: If you had an EKG or X-rays taken, they have been read by the Emergency Physician. The X-rays and EKG's will also be read by a Radiologist or Welding Machine Operator [employer] Arc within 24 hours. If discrepancies are noted, you will be notified by telephone. Please be certain the ED has a correct telephone number & address where you can be reached. Also, realize that some fractures or abnormalities do not show up on initial X-rays. If your symptoms continue, see your physician. ABOUT YOUR LABORATORY TEST: If you had laboratory tests, the results have been reviewed by the Emergency Physician. Some test results (for example cultures) may not be available for several days. You will be contacted if any test result shows you need additional treatment. Please be certain the ED has a correct telephone number and address where you can be reached. ABOUT YOUR MEDICATIONS: You will receive instructions on how to take your medicine on the prescription label you receive. Additional information may be provided by the Pharmacy. If you have questions afterwards, call the ED for cl arification or further instructions. Some prescribed medications may cause drowsiness. Do not perform tasks such as driving a car or operating machinery without consulting your Pharmacist. If you feel you need a refill of pain medication, your condition will need re-evaluation. Please do not call for a refill of any medication. ABOUT YOUR SIGNATURE: Signature of this document acknowledges to followin. Understanding that you received emergency treatment and that you may be released before al medical problems are known or treated. Please be certain the ED has a correct phone number & address where you can be reached. 2. Acknowledgement that you will arrange for follow-up care as recommended. 3. Authorization for the Emergency Physician to provide information to your follow-up Physician in order to maximize your care. AT ANY TIME, IF YOUR SYMPTOMS CHANGE SIGNIFICANTLY OR WORSEN OR YOU DEVELOP NEW SYMPTOMS, RETURN TO THE EMERGENCY DEPARTMENT IMMEDIATELY FOR RE-EVALUATION. OUR GOAL IS TO PROVIDE EXCELLENT MEDICAL CARE! WE HOPE THAT WE HAVE MET YOUR EXPECTATIONS DURING YOUR EMERGENCY DEPARTMENT VISIT AND THAT YOU FEEL YOU HAVE RECEIVED EXCELLENT CARE! Prescriptions: Baclofen [Baclofen 10 mg Tablet] 10 mg PO TID #30 tab Clindamycin HCl 300 mg PO TID #21 capsule Naproxen [Naprosyn] 500 mg PO BID #20 tablet
[2020-04-12 17:39] LABS: ABSOLUTE BASOPHILS # (AUTO) 0.1 10^3/uL (0.0-0.2); ABSOLUTE EOSINOPHILS # (AUTO) 0.1 10^3/uL (0.0-0.6); ABSOLUTE LYMPHOCYTES (AUTO) 1.5 10^3/uL (0.5-4.7); ABSOLUTE MONOCYTES (AUTO) 1.1 10^3/uL (0.1-1.4); ABSOLUTE NEUT (AUTO) 3.4 10^3/uL (1.7-8.2); BASOPHILS % (AUTO) 1.3 % (0-2); EOSINOPHILS % (AUTO) 1.7 % (0-6); HEMOGLOBIN 12.5 g/dL (13.5-17.0); LYMPHOCYTES % (AUTO) 23.8 % (13-45); MEAN CORPUSCULAR HEMOGLOBIN 28.6 pg (27.0-33.4); MEAN CORPUSCULAR HGB CONC 33.9 g/dL (32.0-36.0); MEAN CORPUSCULAR VOLUME 85 fl (80-97); MONOCYTES % (AUTO) 17.2 % (3-13); PLATELET COUNT 242 10^3/uL (150-450); RED BLOOD COUNT 4.38 10^6/uL (4.35-5.55); RED CELL DISTRIBUTION WIDTH 15.2 % (11.5-14.0); TOTAL CELLS COUNTED % (AUTO) 100 %; WHITE BLOOD COUNT 6.1 10^3/uL (4.0-10.5)
[2020-04-12 17:43] LABS: INTERNATIONAL RATION (INR) 1.02; PROTHROMBIN TIME 13.6 SEC (11.4-15.4)
[2020-04-12 17:55] LABS: ALBUMIN 3.4 g/dL (3.5-5.0); ALKALINE PHOSPHATASE 89 U/L (38-126); ANION GAP 6 (5-19); ASPARTATE AMINO TRANSFERASE 12 U/L (17-59); BILIRUBIN,DIRECT 0.1 mg/dL (0.0-0.4); BILIRUBIN,TOTAL 0.3 mg/dL (0.2-1.3); BLOOD UREA NITROGEN 6 mg/dL (7-20); CALCIUM 8.3 mg/dL (8.4-10.2); CARBON DIOXIDE 24 mmol/L (22-30); CHLORIDE 108 mmol/L (98-107); CREATINE KINASE 40 U/L (55-170); GLUCOSE 99 mg/dL (75-110); TOTAL PROTEIN 6.5 g/dL (6.3-8.2)
--- NOTE | 2020-04-12 18:01 | RADIOLOGY REPORT (SQ) ---
EXAM DESCRIPTION: CHEST SINGLE VIEW IMAGES COMPLETED DATE/TIME: 04/12/2020 5:49 pm REASON FOR STUDY: Chest pain COMPARISON: None. EXAM PARAMETERS: NUMBER OF VIEWS: One view. TECHNIQUE: Single frontal radiographic view of the chest acquired. RADIATION DOSE: NA LIMITATIONS: None. FINDINGS: LUNGS AND PLEURA: No opacities, masses or pneumothorax. No pleural effusion. MEDIASTINUM AND HILAR STRUCTURES: No masses. Contour normal. HEART AND VASCULAR STRUCTURES: Heart normal in size. Normal vasculature. BONES: No acute findings. HARDWARE: None in the chest. OTHER: No other significant finding. IMPRESSION: NO ACUTE RADIOGRAPHIC FINDING IN THE CHEST. TECHNICAL DOCUMENTATION: JOB ID: [id number] 2010 [employer]- All Rights Reserved Reading location - IP/workstation name: [email or web address]
[2020-04-12 18:16] LABS: CREATINE KINASE MB < 0.22 ng/mL (<4.55); TROPONIN I < 0.012 ng/mL
--- NOTE | 2020-04-12 19:07 | EKG REPORT ---
SEVERITY:- NORMAL ECG - SINUS RHYTHM : Confirmed by: Shamir Can MD 12-Apr-2020 19:06:25
[2020-04-12 19:52] LABS: APPEARANCE,URINE CLEAR; BILIRUBIN,URINE NEGATIVE (NEGATIVE); COLOR,URINE YELLOW; GLUCOSE, URINE NEGATIVE (NEGATIVE); KETONES,URINE NEGATIVE (NEGATIVE); PROTEIN,URINE 30 mg/dL (NEGATIVE); URINE SPECIFIC GRAVITY 1.021
[2020-04-12 20:11] LABS: URINE BARBITURATES SCREEN NEGATIVE; URINE BENZODIAZEPINES SCREEN NEGATIVE; URINE COCAINE SCREEN NEGATIVE; URINE METHADONE SCREEN NEGATIVE; URINE PHENCYCLIDINE SCREEN NEGATIVE
[2020-04-12 20:35] LABS: URINE MARIJUANA (THC) SCREEN UNCONFIRMED POSITIVE
--- NOTE | 2020-04-12 20:44 | RADIOLOGY REPORT (SQ) ---
EXAM DESCRIPTION: US EXTREMITY VEINS UNILATERAL COMPLETED DATE/TME: 04/12/2020 20:22 CLINICAL HISTORY: 30 years, Male, Left arm pain after injecting heroin 4 days ago COMPARISON: None. TECHNIQUE: Magana scale imaging and Doppler imaging of the left upper extremity venous system were performed. Grayscale imaging, color Doppler flow, and spectral Doppler analysis were performed. LIMITATIONS: None. FINDINGS: There is no evidence of thrombus within the visualized portions of the left subclavian and jugular veins through the axillary and brachial veins. Further, the basilic and cephalic veins appear patent. IMPRESSION: Negative study as above copyright 2010 [employer]- All Rights Reserved
--- NOTE | 2020-04-12 21:51 | RADIOLOGY REPORT (SQ) ---
EXAM DESCRIPTION: CT CHEST ANGIOGRAPHY WITHOUT THEN WITH IV CONTRAST COMPLETED DATE/TME: 04/12/2020 20:57 CLINICAL HISTORY: 30 years, Male, chest pain COMPARISON: Chest x-ray from earlier today TECHNIQUE: Postcontrast images of the chest were obtained utilizing pulmonary embolus protocol. This examination was performed according to a CT angiographic (CTA) protocol with 3D post-processing. This involves 3D reconstructions, MIPS, volume rendered images and/or shaded surface rendering. Images stored on PACS. All CT scanners at this facility use dose modulation, iterative reconstruction, and/or weight based dosing when appropriate to reduce radiation dose to as low as reasonably achievable (ALARA). [facility]: Dose Right [facility]: CareDose [facility]: Dose Right [facility]: Teradose 4D [facility]: GoSquared LIMITATIONS: None. FINDINGS: There is no evidence of pulmonary embolus. Heart size is normal. Main pulmonary artery is normal in caliber. There is a small calcified granuloma within the right lower lobe. Small noncalcified left lower lobe lung nodules measure up to 4 mm and likely noncalcified granulomas. No airspace consolidation or lobar atelectasis. Major central airways are patent. There are no effusions. There are no pathologically enlarged lymph nodes. There is a thick walled appearance about the mid to distal esophagus below the level of the cara, with esophagitis not excluded. Images of the upper abdomen reveal mild hepatosplenomegaly. No acute or suspicious bony abnormality is seen. IMPRESSION: 1. No evidence of pulmonary embolus. 2. Thick-walled appearance about the mid to distal esophagus, raising the possibility of esophagitis. Clinical correlation is recommended. This could be further evaluated with barium swallow study or endoscopy as clinically directed. 3. Hepatosplenomegaly. TECHNICAL DOCUMENTATION: Quality ID # [id number]: Final reports with documentation of one or more dose reduction techniques (e.g., Automated exposure control, adjustment of the mA and/or kV according to patient size, use of iterative reconstruction technique) copyright 2011 [employer]- All Rights Reserved
[2020-04-12 23:40] VITALS: BP 114/69
== END 2020-04-12 23:45 | disposition home or self-care (01) ==
LOC: ER 16:54
DX: R07.89 Other chest pain (principal); M79.602 Pain in left arm; F19.10 Other psychoactive substance abuse, uncomplicated
CPT/HCPCS: 93005; 96376; 99285; 96374; 96375; 36415; 82553; 82550; 85025; 85610; 85730; 80053; 81001; 84484; 80307; 93971; 71045; 71275; 93010; J1885; J2060